=== PATIENT | male | born 1985 | race Caucasian/White ===

== ENCOUNTER → 2016-07-09 | Outpatient (CLI) | payer MEDICAID ==
--- NOTE | 2016-07-09 11:23 | RADIOLOGY REPORT PS360 ---
CERVICAL SPINE 4 OR 5 VIEWS HISTORY: NECK PAIN COMPARISON: None FINDINGS: Normal alignment. No fracture or dislocation evident. No lytic or blastic change. The disc spaces are well-preserved. There is some mild facet hypertrophic change on the left at C5-C6 but no obvious foraminal narrowing. IMPRESSION: 1. Mild spondylosis at C5-C6 otherwise negative
== END ==
LOC: RAD 10:24
DX: M54.2 Cervicalgia (principal)